=== PATIENT | female | born 1940 | race African-American/Black ===

== ENCOUNTER 2020-04-22 19:52 | Emergency (ER) | payer OTHER, MEDICAID ==
[~2020-04-22] VITALS: Ht 162.6 cm; Wt 106.6 kg
[2020-04-22 19:58] VITALS: BP_SYST 170
--- NOTE | 2020-04-22 19:58 | NUR ---
Patient to ER bed 8 to gown for evaluation. Side rails up. Report given to WILLIE SANDOVAL.
--- NOTE | 2020-04-22 20:00 | NUR ---
RECEIVED AND IN ROOM. NATANAEL TO ASSUME CARE
--- NOTE | 2020-04-22 20:05 | NUR ---
DR BALLESTEROS IN TO ASSESS
--- NOTE | 2020-04-22 20:24 | NUR ---
ALERT, ANXIOUS, AGITATED, RESUSES TO BE TOUCHED, COVID OBTAINE WITH MUCH NEGOTIATING. STEADY GAIT WITH USE OF WALKER. DENIES CP/SOB. SKIN WARM AND DRY. HERE FOR MEDICAL CLEARANCE TO [facility]
--- NOTE | 2020-04-22 20:41 | NUR ---
PATIENT TALKING ON PHONE ANIMATED CONVERSATION.
--- NOTE | 2020-04-22 21:26 | NUR ---
REPORT TO ALIZE SANDOVAL AT [facility]
--- NOTE | 2020-04-22 21:43 | NUR ---
Patient given written and verbal discharge instructions and verbalizes understanding. ER MD discussed with patient the results and treatment provided. Patient in stable condition. patient educated on pain management and to follow up with PMD. Pain Scale 0/10. Opportunity for questions provided and answered.
[2020-04-22] MEDS ORDERED: LORazepam 2 MG/ML VIAL IM ONE (22:15)
[2020-04-22] MEDS ORDERED: DIPHENHYDRAMINE INJ 50 MG/ML VIAL IM ONE (22:15)
[2020-04-22] MEDS ORDERED: HALOPERIDOL LACTATE 5 MG/ML VIAL IM ONE (22:15)
--- NOTE | 2020-04-22 22:15 | NUR ---
REQUIRED MEDICATION FOR STABILIZATION AND TRANSFER TO [facility]. PT WAS WAS GIVEN MULTIPLE OPPORTUNITIES AND REQUIRED EMERGENCY MEDICATION DUE TO PSYCHOSIS AND AGITATION. SEVERAL STAFF ASSISTED TO SAFELY ADMINISTER MEDS WITHOUT INCIDENT
[2020-04-22 22:28] VITALS: BP_SYST 170
== END 2020-04-22 22:15 ==
LOC: SED 19:52
DX: Z13.30 Encounter for screening examination for mental health and behavioral disorders, unspecified (principal); J45.909 Unspecified asthma, uncomplicated; I10 Essential (primary) hypertension; E11.9 Type 2 diabetes mellitus without complications; F03.90 Unspecified dementia, unspecified severity, without behavioral disturbance, psychotic disturbance, mood disturbance, and anxiety; K21.9 Gastro-esophageal reflux disease without esophagitis; F32.9 Major depressive disorder, single episode, unspecified; M79.7 Fibromyalgia; E66.9 Obesity, unspecified; Z20.828 Contact with and (suspected) exposure to other viral communicable diseases
CPT/HCPCS: 36415; 87426; 96372; 99285; J1200; J1630; J2060